=== PATIENT | female | born 2005 | race Caucasian/White ===

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

== ENCOUNTER 2025-04-10 16:46 | Emergency (ER) | payer BC, SELFPAY ==
[2025-04-10 16:47] VITALS: BP 129/83; PULSE 110; RESP 16; TEMP 36.8; O2SAT 99; BMI 21.6
--- NOTE | 2025-04-10 17:03 | EKG12_ITS ---
Test Reason : PALPITATIONS Blood Pressure : */* mmHG Vent. Rate : 80 BPM Atrial Rate : 80 BPM P-R Int : 138 ms QRS Dur : 90 ms QT Int : 372 ms P-R-T Axes : 64 86 53 degrees QTcB Int : 429 ms Normal sinus rhythm with sinus arrhythmia Normal ECG Confirmed by LISA HUNTER ([id number]), managing editor YAMILKA CARLOS ([id number]) on 04/12/2025 6:56:38 AM Referred By: SHANE Confirmed By: LISA HUNTER
--- NOTE | 2025-04-10 17:04 | RAD_ITS ---
PROCEDURE: CHEST PA AND LATERAL 04/10/2025 REASON FOR EXAM: CHEST PAIN TECHNIQUE: Procedure Code: RADCXR Modality: DX Procedure: CHEST PA AND LATERAL FINDINGS: No focal consolidation. No pleural effusion or pneumothorax. Cardiac silhouette is within normal limits. No acute fractures. RAD/Chest PA and Lateral IMPRESSION: No focal consolidations. Reading Location: [id number]
--- NOTE | 2025-04-10 17:06 | ED.VIS.CHEST ---
HPI History of Present Illness Chief Complaint: Palpitations Informant: patient Narrative Narrative: Patient is a 20-year-old female presenting with palpitations. - Reports sudden onset of palpitations 3 hours ago while doing homework at her desk. Still feeling it but not as severe now. Never had this happen before. - Associated symptoms include lightheadedness, chest pain, and pressure. - Denies dyspnea or leg swelling. - Recently started taking iron supplements a few days ago for hair loss, as advised by her PCP. No other medication changes. Awaiting referral for iron level testing at an outpatient lab. - Current medications include spironolactone and two topical creams for acne; no other new medications. - Reports diarrhea over the past few days. - Denies abdominal pain, nausea, emesis, constipation, or fever. - Has been feeling abnormally cold. [facility] Medical History Acne Allergy/AdvReac Type Severity Reaction Status Date / Time No Known Allergies Allergy Verified 04/10/25 16:47 Social History Smoking Status: Never smoker ROS ROS ED Constitutional Constitutional ED: Denies chills or fever(s) Eyes Eyes: Denies change in vision or diplopia ENT ENT ED: Denies rhinorrhea or sore throat Cardiovascular Cardiovascular: Reports as per HPI, chest pain, lightheadedness, palpitations and racing heartbeat; Denies syncope Respiratory/Chest Respiratory/Chest: Denies cough or dyspnea Gastrointestinal Gastrointestinal: Reports diarrhea; Denies abdominal pain, nausea or vomiting Genitourinary Genitourinary ED: Denies dysuria or hematuria Musculoskeletal Musculoskeletal: Denies back pain or neck pain Integumentary Denies abscess or rash Neurologic Neurologic: Denies headache(s), paresthesias or weakness Psychiatric Psychiatric: Denies anxiety or suicidal thoughts Endocrine Endocrinology: Reports cold intolerance EXAM Physical Exam Const Vital Signs: 04/10/25 16:47 04/10/25 16:56 04/10/25 17:20 Temperature 98.2 F Temperature Source Oral Pulse Rate 110 H Respiratory Rate 16 Respiratory Effort Normal Non-Labored Blood Pressure 129/83 H Blood Pressure Mean 98 Pulse Ox 99 Oxygen Delivery Method Room Air Room Air 04/10/25 18:00 04/10/25 19:00 Temperature Temperature Source Pulse Rate 88 77 Respiratory Rate 14 18 Respiratory Effort Blood Pressure 130/80 H 116/71 Blood Pressure Mean 94 86 Pulse Ox 100 99 Oxygen Delivery Method Positive well nourished and well developed General Appearance ED: well developed and NAD HEENT Reports moist mucous membranes normocephalic and atraumatic Eyes PERRL and EOMs intact bilaterally Neck full ROM and supple Resp normal respiratory effort and clear to auscultation bilaterally Cardio regular rate, regular rhythm and no murmurs GI non-tender and non-distended Auscultation: normoactive bowel sounds Palpation: soft Back/Spine no CVA tenderness General Back: other FROM Extremity normal to inspection General Extremety ED: Negative for edema, pulses abnormal or tenderness General Extremity: Negative for edema or pulses abnormal Neuro oriented x3, CN's II-XII intact bilaterally and no sensory deficits noted Sensorium / Orientation: awake and alert Motor Exam: strength 5/5 throughout Skin no rashes or lesions noted and no wounds Heart Score History: Slightly/Non-Suspicious ECG: Normal Age: </= 45 years Risk Factors: No Risk Factors Troponin: </= Normal Limit Score: 0 MDM MDM MDM Narrative Medical decision making narrative: Assessment: The patient is a 20-year-old female presenting for episodic palpitations with mild chest discomfort that began abruptly while at rest studying. On arrival HR was ~110; now 90?91 in normal rhythm. Differential included dysrhythmia, electrolyte disturbance from spironolactone, pulmonary embolism, anemia, and myocardial ischemia. Normal cardiac enzymes, normal D-dimer, normal electrolytes, and absence of anemia make ACS, PE, and metabolic triggers unlikely; symptoms have resolved in ED and rhythm remains sinus tachycardia at low 90s. Most likely benign transient palpitations of unclear etiology. Plan: - Continuous cardiac telemetry while in ED; no dysrhythmia observed. - Discharged home in stable condition once monitoring period and lab review completed. - Advised patient to return to ED if palpitations recur or any new chest pain, syncope, or dyspnea develops. - Encouraged outpatient follow-up with primary care for iron studies and consideration of ambulatory rhythm monitor if symptoms recur. Diagnostics: - Cardiac enzymes (troponin) ? normal. - D-dimer ? normal, effectively rules out pulmonary embolism. - Complete blood count ? no anemia. - Basic metabolic panel ? electrolytes normal. Reevaluations: - Patient re-assessed after labs resulted; asymptomatic, HR low 90s, rhythm normal, tolerating oral intake, comfortable and ready for discharge. Lab Data Attestation: I reviewed the patient's lab results. Labs: Laboratory Results - last 24 hr 04/10/25 04/10/25 17:20 19:20 WBC 8.7 RBC 4.60 Hgb 12.0 Hct 37.2 MCV 80.9 L MCH 26.1 L MCHC 32.3 RDW Std Deviation 45.1 H RDW Coeff of Micaela 15.3 H Plt Count 298 MPV 10.9 Immature Gran % (Auto) 0.300 Neut % (Auto) 81.1 H Lymph % (Auto) 14.4 L Mingo % (Auto) 4.0 Eos % (Auto) 0.0 Baso % (Auto) 0.2 Absolute Neuts (auto) 7.1 Absolute Lymphs (auto) 1.25 Nucleated RBC % 0 D-Dimer Quant (PE/DVT) 0.27 Sodium 141 Potassium 4.0 Chloride 106 Carbon Dioxide 24.6 Anion Gap 10 BUN 9 Creatinine 0.79 Estim Creat Clear Calc 105.45 Est GFR (MDRD) Non-Af 109 BUN/Creatinine Ratio 11.2 Glucose 110 H Calcium 9.8 Troponin T High Sens 6 Troponin T Hi Sens 2 Hr < 6 Radiography Diagnostic Testing: Clinical Impression(s) from Imaging Studies Chest X-Ray 04/10/25 17:04 IMPRESSION: No focal consolidations. Reading Location: [facility] Rhythm Strip Rhythm Strip: Sinus Rhythm Rate: 91 Ectopy: None EKG Initial EKG: Attestation: I personally reviewed and interpreted this EKG as follows: Interpretation: Sinus Rhythm (87) and No Acute Injury Pattern Comments: Nml axis & intervals; nml EKG Discharge Plan Triage Chief Complaint: Palpitations ED Provider: Raz Rizvi Dx/Rx/DC Orders Clinical Impression: Rapid palpitations, Chest pain, unspecified Instructions: ED Heart Palpitations Primary Care Provider: AMISHA WHATLEY Referrals: Doctor,Your [Non-Staff, None] Referral Note: or return to the ER for recurrent symptoms Print Language: Panamanian Disposition Disposition: Home, Self Care
[2025-04-10 17:29] LABS: Hematocrit 37.2 % (37-47); Hemoglobin 12.0 g/dL (12.0-15.0); Immature Granulocytes Count 0.030 X10^3/uL (0.0-0.0); Mean Corp Hgb Conc 32.3 g/dL (32-36); Mean Corpuscular Volume 80.9 fL (81-99); Mean Platelet Vol. 10.9 fl (6.2-12.0); NRBC Flagged by Analyzer 0 % (0-5); Platelet Count 298 K/mm3 (150-450); RBC Distribution Width CV 15.3 % (11.6-14.6); RBC Distribution Width SD 45.1 fl (35.1-43.9); Red Blood Count 4.60 M/mm3 (4.2-5.4); White Blood Count 8.7 K/mm3 (4.4-11.0)
[2025-04-10 17:54] LABS: Anion Gap 10 (5-15); BUN 9 mg/dL (4-19); BUN/Creat Ratio 11.2 RATIO (10-20); Calcium,Total 9.8 mg/dL (7.6-11.0); Carbon Dioxide 24.6 mmol/L (21.0-32.0); Chloride 106 mmol/L (98-108); Estimated Creatinine Clearance 105.45 ml/min (50-250); Glucose 110 mg/dL (70-99); Potassium 4.0 mmol/L (3.3-5.1); Troponin T High Sensitivity 6 ng/L (<=14)
[2025-04-10 18:00] VITALS: BP 130/80; PULSE 88; RESP 14; O2SAT 100
[2025-04-10 18:44] LABS: D-Dimer Quantitative (DVT/PE) 0.27 FEU/ug/m (0.27-0.49)
[2025-04-10 19:00] VITALS: BP 116/71; PULSE 77; RESP 18; O2SAT 99
[2025-04-10 19:51] LABS: Troponin T High Sens 2 HR < 6 ng/L (<=14)
[2025-04-10 20:24] VITALS: BP 114/68; PULSE 71; RESP 16; TEMP 36.8; O2SAT 99
== END 2025-04-10 20:25 | disposition home or self-care (01) ==
PROVIDERS: Emergency Provider Emergency Medicine; Visit Provider Emergency Medicine
DX: R07.9 Chest pain, unspecified (principal); R00.2 Palpitations; Z79.899 Other long term (current) drug therapy; L70.9 Acne, unspecified
CPT/HCPCS: 71046; 80048; 84484; 85025; 85379; 93005; 99284; A4216

== ENCOUNTER 2025-04-10 22:28 | Emergency (ER) | payer BC, SELFPAY ==
[2025-04-10 22:28] VITALS: BP 132/82; PULSE 94; RESP 16; TEMP 36.8; O2SAT 99; BMI 21.0
--- NOTE | 2025-04-10 22:34 | EDS_ITS ---
HPI History of Present Illness Chief Complaint: Palpitations Informant: patient Onset/Context/Timing Onset: Hours (1) Context: Sudden Onset Timing: Continuous Quality: Racing Location: Heart Worsened by: Nothing Relieved by: Nothing Narrative Narrative: Patient presents with palpitations that began approximately 1 hour prior to arrival. Patient states she feels like her heart is racing. Patient states she was seen here earlier today and had normal test results at that time. Patient states she did get nauseated when the palpitations began. Patient states she feels shaky all over. Patient states nothing makes her symptoms better and nothing makes them worse. Patient denies any fevers or chills. Patient denies any chest pain or shortness of breath. [facility] Medical History (Updated 04/10/25 @ 23:[address] Chris Razo DO) Acne Allergy/AdvReac Type Severity Reaction Status Date / Time No Known Allergies Allergy Verified 04/10/25 22:29 Surgical History (Updated 04/10/25 @ 22:[address] Chris Razo DO) Hx of wisdom tooth extraction Social History Smoking Status: Never smoker ROS ROS ED Constitutional Constitutional ED: Denies chills or fever(s) Eyes Eyes: Denies blurry vision or change in vision ENT ENT ED: Denies rhinorrhea or sore throat Cardiovascular Cardiovascular: Reports palpitations; Denies chest pain Respiratory/Chest Respiratory/Chest: Denies cough or dyspnea Gastrointestinal Gastrointestinal: Reports nausea; Denies vomiting Genitourinary Genitourinary ED: Denies dysuria or hematuria Musculoskeletal Musculoskeletal: Denies back pain or neck pain Integumentary Denies abscess or rash Neurologic Neurologic: Denies headache(s) or weakness Allergic/Immunologic Allergic/Immunologic ED: Denies mouth swelling or urticaria EXAM Physical Exam Const Vital Signs: 04/10/25 22:28 04/10/25 22:38 04/11/25 00:28 Temperature 98.3 F Temperature Source Oral Pulse Rate 94 79 Respiratory Rate 16 10 L Respiratory Effort Normal Non-Labored Blood Pressure 132/82 H 120/72 Blood Pressure Mean 98 88 Pulse Ox 99 98 Oxygen Delivery Method Room Air Room Air Positive well nourished and well developed General Appearance ED: well developed and NAD HEENT Reports moist mucous membranes Neck supple and no JVD Resp normal respiratory effort and clear to auscultation bilaterally Cardio regular rate and regular rhythm GI non-tender and non-distended Palpation: soft Extremity normal to inspection General Extremety ED: Negative for edema or tenderness General Extremity: Negative for edema Neuro oriented x3, CN's II-XII intact bilaterally and no sensory deficits noted Sensorium / Orientation: alert Motor Exam: strength 5/5 throughout Psych mental status grossly normal MDM MDM MDM Narrative Medical decision making narrative: Differential diagnosis includes cardiac dysrhythmia, gastroesophageal reflux disease, and anxiety. EKG will be obtained to assess for cardiac dysrhythmia. Prior to labs from earlier today were reviewed and were within normal limits. I do not feel these need to be repeated at this time. History & Record Review Additional record(s) reviewed:: Prior ED visit and Prior labs EKG Initial EKG: Attestation: I personally reviewed and interpreted this EKG as follows: Interpretation: Sinus Rhythm (80) Comments: EKG was obtained. On my independent interpretation, it showed a normal sinus rhythm with sinus arrhythmia with a rate of 80. RI interval, QRS interval, and QTc intervals were all normal. [place] was normal. There are no acute ST or T wave changes. Prior EKG tracings: available for review Prior: Unchanged (04/10/2025) Treatment and Re-Evaluation :: Patient will be observed on the superintendent local. Patient remained asymptomatic. Patient had no episodes of tachycardia here in the emergency department. Patient was ordered a 48-hour Holter monitor. Respiratory will apply this prior to discharge. Patient was instructed to follow-up with her primary care physician in 5 to 7 days. Patient was instructed return if worse in any way. Patient understood and was agreeable with the plan. All questions were answered. Discharge Plan Triage Chief Complaint: Palpitations ED Provider: Chris Razo Dx/Rx/DC Orders Clinical Impression: Rapid palpitations Instructions: ED Heart Palpitations Primary Care Provider: AMISHA WHATLEY Referrals: AMISHA WHATLEY [Other] - 5-7 Days Print Language: Hungarian Disposition Disposition: Home, Self Care
--- OUTSIDE RECORDS SUMMARY | 2025-04-10 22:55 | XMS RPT_ITS | CCD ---
Author Organization [facility] Inform ion Partnership [facility] Care Team Providers Care Director Recreation Name Role Phone Cira Paula Attending Unavailable Care Physician, No Primary Primary Care Unava ilable Sherwin Spicer Attending Unavailable Care Physician, No Primary Primary Care Unava ilable Problems Problem Classification Problem Date Documented Da te Episodic/Chronic Immunizations and screening for infectious disease (4 sources) Contact with and (suspected) exposure to unspecified communicable disease; Translations: [Exposure to bat without known bite] Onset: 07-24-2023 07-19-2023 Episodic Results Test Name Value Interpretation Reference Range [facility] it Emergency Department Summary on 07-19-2023 Emergency Department Summary [facility] Medical Records Department [address] [place] [address] Emergency Department Summary 07/19/23 MR#: [id number] Acct: [id number] Name: JANESSA AVILEZ Rep #: [id number] : 2005 18 From: Cira Paula MD PCP: Care Physician,No Primary Status:DEP ER Location: ED HPI History of Present Illness Chief Complaint: Bite Detail of Chief Complaint: Possible bat bite Informant: patient Narrative Narrative: Patient presents in the [facility] for possible bat bite. She has noted a red lesion on her left calf for the past week. A bat was found in her dorm yesterday. Due to concern that this was a bat bite she was sent to the emergency room. Patient has been previously vaccinated against rabies. PFSH PFSH Medical History no medical history no medical history Allergy/AdvReac Type Severity Reaction Status Date / Time No Known Allergies Allergy Verified 07/19/23 12:11 Social History Smoking Status: Never smoker ROS ROS ED Constitutional Constitutional ED: Denies chills or fever(s) Eyes Eyes: Denies discharge from eye(s) ENT ENT ED: Denies discharge from eye(s), rhinorrhea or sore throat Cardiovascular Cardiovascular: Denies chest pain Respiratory/Chest Respiratory/Chest: Denies cough or dyspnea Gastrointestinal Gastrointestinal: Denies abdominal pain, nausea or vomiting Musculoskeletal Musculoskeletal: Denies back pain or extremity pain Integumentary Reports other Details: Erythematous lesion to left calf ; Denies Abrasions or rash Neurologic Neurologic: Denies headache(s) or weakness Psychiatric Psychiatric: Denies anxiety or depression Allergic/Immunologic Allergic/Immunologic ED: Denies lip swelling or urticaria EXAM Physical Exam Const Vital Signs: 07/19/23 12:10 Temperature 97.7 F L Temperature Source Temporal Pulse Rate 99 Respiratory Rate 18 Blood Pressure 130/84 H Blood Pressure Mean 99 Pulse Ox 100 Oxygen Delivery Method Room Air Positive well nourished and well developed General Appearance ED: well developed HEENT Reports moist mucous membranes Chest Wall inspection of chest normal and palpation of chest normal Resp normal respiratory effort and clear to auscultation bilaterally Cardio regular rate and regular rhythm GI non-tender Palpation: soft Extremity Extremity Narrative: There is a small erythematous lesion to the proximal left calf. No surrounding ecchymosis. No tenderness. Strong distal pulses. No leg edema. Neuro oriented x3 and no sensory deficits noted Motor Exam: strength 5/5 throughout Psych mental status grossly normal MDM MDM MDM Narrative Medical decision making narrative: Patient does wish to complete the rabies shots. Given that she has previously been vaccinated she will receive a shot today as well as on day 3. This has been ordered and patient will return on Saturday for her second shot. Discharge Plan Triage Chief Complaint: Bite ED Provider: Cira Paula Dx/Rx/DC Orders Clinical Impression: Exposure to bat without known bite Instructions: ED Animal Bite (General) Primary Care Provider: NOT,DEFINED Referrals: NOT,DEFINED [Primary Care Provider] - Disposition Disposition: Home, Self Care What to do if you have Problems For any increased pain, shortness of breath, bleeding, nausea or vomiting, chest pain, or any unexpected problems, contact your Primary Care Provider. Call [facility] ([phone]) or report to the closest Emergency Room. Call 911 if necessary. 07/19/232122 Cosigner Signature (if applicable): CC: No Primary Care Physician Signed Normal [facility] Vital Signs Date Time Vital Sign Value Performing Clinician Faci lity 07-22-2023 16:16-0500 Body height 167.64 cm [facility] 07-22-2023 16:16-0500 Body mass index (BMI) [Percentile] Per age and sex 58.6 % [facility] 07-22-2023 16:16-0500 Body mass index (BMI) [Ratio] 22.4 kg/m2 [facility] 07-22-2023 16:16-0500 Body temperature 96.8 [degF] [facility] 07-22-2023 16:16-0500 Body weight 63.14 kg [facility] 07-22-2023 16:16-0500 Diastolic blood pressure 73 mm[Hg] [facility] 07-22-2023 16:16-0500 Heart rate 84 /min [facility] 07-22-2023 16:16-0500 Respiratory rate 16 /min [facility] 07-22-2023 16:16-0500 SaO2% (BldA) [Mass fraction] 100 % [facility] 07-22-2023 16:16-0500 Systolic blood pressure 123 mm[Hg] [facility] 07-19-2023 12:10-0500 Body height 167.64 cm [facility] 07-19-2023 12:10-0500 Body mass index (BMI) [Percentile] Per age and sex 57.5 % [facility] 07-19-2023 12:10-0500 Body mass index (BMI) [Ratio] 22.3 kg/m2 [facility] 07-19-2023 12:10-0500 Body temperature 97.7 [degF] [facility] 07-19-2023 12:10-0500 Body weight 62.73 kg [facility] 07-19-2023 12:10-0500 Diastolic blood pressure 84 mm[Hg] [facility] 07-19-2023 12:10-0500 Heart rate 99 /min [facility] 07-19-2023 12:10-0500 Respiratory rate 18 /min [facility] 07-19-2023 12:10-0500 SaO2% (BldA) [Mass fraction] 100 % [facility] 07-19-2023 12:10-0500 Systolic blood pressure 130 mm[Hg] [facility] Encounters Encounter Date Encounter Type Care Provider Facility Start: 07-22-2023 End: 07-22-2023 ambulatory Sherwin Spicer Facility:[facility] Start: 07-22-2023 End: 07-22-2023 Emergency department patient visit [facility] Work Phone: Start: 07-19-2023 End: 07-19-2023 Emergency department patient visit Cira Paula Facility:[facility] Start: 07-19-2023 End: 07-19-2023 Emergency department patient visit [facility] Work Phone: Plan of Treatment Date Care Activity Detail Author Start: 07-19-2023 [facility] Patient Education ED Animal Bite (General) [facility] Work Phone: Patient referral [facility] Work Phone: Immunizations Immunization Date Immunization Notes Care Provider Fa cility 07-22-2023 rabies vaccine, for intramuscular injection [facility] 07-19-2023 rabies vaccine, for intramuscular injection [facility] Payers Date Payer Category Payer Self-pay 2023 Unknown [id number] Unknown [id number] Unknown [id number] Social History Date Type Detail Facility [facility]: [facility] Start: 2005 Sex Assigned At Female [facility] Evaluation note Note Date & Type Note Facility Evaluation note No assessment information availa ble [facility] Work Phone: Chief Complaint and Reason for Visit Chief Complaint BITE Chief Complaint BITE meds only Advance Directives No Advanced Directives Records Found Advance Directive Response Recorded Date/ Time Living Will No July 19 1:35pm Power of Metal Expediter No July 19, 2023 1:35pm Summary Purpose Family History No Family History Records Found Additional Source Comments Care Teams (unrecognized sec tion and content) Team Status: Active Member Role Status Dates No Primary Care Physician Primary Care Provider Active Team Status: Inactive Member Role Status Dates Dr. Cira Paula MD Emergency Provider Active No Primary Care Physician Primary Care Provider Active Team Status: Inactive Member Role Status Dates No Primary Care Physician Primary Care Provider Active Dr. Sherwin Spicer MD Emergency Provider Active Goals (unrecognized section and content) Goals may be documented in a n alternate sectionGoals may be documented in an alternate section INFORMATION SOURCE (unrecogn ized section and content) DATE CREATED AUTHOR 07/27/2023 [facility] FOR RECORDS PERTAINING TO PATIENTS WHO ARE OR HAVE BEEN ENROLLED IN A CHEMICAL DEPENDENCY/SUBSTANCEABUSE PROGRAM, SOME INFORMATION MAY BE OMITTED. This clinical summary was aggregated from multiple sources. Caution should be exercised in using it in the provision of clinical care. This summary normalizes information from multiple sources, and as a consequence, information in this document may materially change the coding, format and clinical context of patient data. In addition, data may be omitted in some cases. CLINICAL DECISIONS SHOULD BE BASED ON THE PRIMARY CLINICAL RECORDS. [employer] provides no warranty or guarantee of the accuracy or completeness of information in this document.
[2025-04-11 00:28] VITALS: BP 120/72; PULSE 79; RESP 10; O2SAT 98
[2025-04-11 00:46] VITALS: BP 124/57; BP 131/81; BP 134/91; PULSE 88; PULSE 91; PULSE 95
[2025-04-11 00:47] VITALS: BP 124/78; PULSE 99; RESP 16; TEMP 36.6; O2SAT 100
== END 2025-04-11 00:48 | disposition home or self-care (01) ==
PROVIDERS: Emergency Provider Emergency Medicine; Visit Provider Emergency Medicine
DX: R00.2 Palpitations (principal)
CPT/HCPCS: 93005; 99284

== ENCOUNTER → 2025-04-11 | Outpatient (CLI) | payer BC, SELFPAY | END | disposition home or self-care (01) | LOC: CVS 00:36 | PROVIDERS: Referring Provider Internal Medicine Interventional Cardiology; Visit Provider Internal Medicine Interventional Cardiology | DX: R00.2 Palpitations (principal) | CPT/HCPCS: 93225; 93226 ==